=== PATIENT | male | born 1995 | race Caucasian/White ===

== ENCOUNTER 2016-10-11 03:57 | Emergency (ER) | payer OTHER ==
[~2016-10-11] VITALS: Ht 193 cm; Wt 93.4 kg
[2016-10-11 04:02] VITALS: Ht 193 cm; Wt 93.4 kg
[2016-10-11 04:50] LABS: BUN/CREATININE RATIO 14.9 (10-20); CALCIUM 8.5 mg/dl (8.5-10.1); CREATININE 1.1 mg/dl (0.60-1.40); POTASSIUM 4.3 mmol/L (3.5-5.1)
--- NOTE | 2016-10-11 05:00 | EMERGENCY ROOM VISIT NOTE ---
History First contact with patient: 04:00 Chief Complaint: ALCOHOL OVERDOSE Stated Complaint: ALCOHOL OVERDOSE Nursing Triage Summary: Pt brought in by EMS, found passed out on the [employer] bus. History of Present Illness The patient is a 21 year old male who presents to the Emergency Room via EMS for evaluation of alcohol intoxication. The patient was reportedly found passed out on a [employer] bus. The patient reports that he had been out drinking tonight, and was riding the bus home when he must have fallen asleep. He denies any trauma or drug use. The patient has no complaints at this time. He denies nausea, vomiting, headache, neck pain, chest pain, shortness of breath or abdominal pain. Review of Systems A complete 10 point review of systems was reviewed with the patient with pertinent positives and negatives as per history of present illness. All else were negative. Social History Smoking Status: Never Smoker Housing Status: lives with roommate Occupation Status: [employer] student Current/Historical Medications No Active Prescriptions or Reported Meds Allergies Coded Allergies: No Known Allergies (Unverified , 02/05/14) Physical Exam Vital Signs Date Time Temp Pulse Resp B/P Pulse Ox O2 Delivery O2 Flow Rate FiO2 10/11/16 05:19 80 18 146/72 98 10/11/16 04:03 86 10/11/16 04:02 85 20 151/79 97 Room Air Physical Exam VITALS: Vitals are noted on the nurse's note and reviewed by myself. Vital signs stable. GENERAL: This is a 21-year-old male, sitting up in bed, appears to be slightly intoxicated, answers questions appropriately and is cooperative with examiner. SKIN: The skin was without erythema, edema, or bruising. HEAD: Normocephalic atraumatic. EARS: External auditory canals clear. No hemotympanum. EYES: Pupils equal round and reactive to light and accommodation. NOSE: No deformities noted. MOUTH: No loose or chipped teeth. NECK: No cervical spine tenderness. HEART: Regular rate and rhythm without murmurs gallops or rubs. LUNGS: Clear to auscultation bilaterally without wheezes, rales or rhonchi. ABDOMEN: Soft, nontender. MUSCULOSKELETAL: Full range of motion throughout. Strength intact throughout. NEURO: Patient was alert and oriented to person place and time. Speech is clear. Gross sensation intact. Patient cooperative with examiner. Medical Decision & Procedures Laboratory Results 10/11/16 04:12 Test 10/11/16 04:12 Anion Gap 7.0 mmol/L (3-11) Est Creatinine Clear Calc Drug Dose 130.4 ml/min Estimated GFR () 110.6 Estimated GFR (Non- 95.5 BUN/Creatinine Ratio 14.9 (10-20) Calcium Level 8.5 mg/dl (8.5-10.1) Ethyl Alcohol mg/dL 283.0 mg/dl (0-3) Medical Decision Differential diagnosis includes alcohol intoxication, drug intoxication, trauma , among others. The patient was evaluated as above. He presents for evaluation of alcohol intoxication. On exam, the patient's speech is clear and he is alert to person place and time. He does not appear to be significantly intoxicated. Alcohol level was found to be 283. Glucose is 107. Kidney functions within normal limits. The patient was able to contact a sober friend to drive him home. He was instructed to not drink anymore alcohol today. He verbalized understanding and was discharged home in good condition. Impression Primary Impression: Alcohol use with intoxication Departure Information Dispostion Home / Self-Care Condition GOOD Prescriptions No Active Prescriptions or Reported Meds Referrals No Doctor, Assigned (PCP) Patient Instructions My [facility] Additional Instructions Do not drink any more alcohol today. Rest and drink plenty of fluids today. For pain control, you can use the following [id number] medicines (if >12 yo): - Regular strength (325mg/tab) Tylenol (acetaminophen) 2 tabs every 4-6 hours as needed. Do not exceed 12 tablets in a 24 hour period. Avoid taking more than 4 grams (4000 mg) of Tylenol per day. This includes any other sources of acetaminophen you may take on a regular basis. - Regular strength (200 mg/tab) Advil (ibuprofen) 1-2 tabs every 4-6 hours as needed. Do not exceed a dose of 3200 mg per day.
[2016-10-11 05:19] VITALS: BP 146/72; PULSE 80; O2SAT 98
== END 2016-10-11 05:21 | disposition home or self-care (01) ==
LOC: EDBD 03:57 → C.EDB 04:00
DX: F10.129 Alcohol abuse with intoxication, unspecified (principal); Y90.8 Blood alcohol level of 240 mg/100 ml or more